=== PATIENT | male | born 1955 | race Caucasian/White ===

== ENCOUNTER → 2020-01-30 | Outpatient (CLI) | payer OTHER | LOC: M.ULTRA 15:30 | DX: R60.0 Localized edema (principal); R06.02 Shortness of breath ==

== ENCOUNTER 2020-03-07 10:41 | Inpatient (IN) | payer OTHER, MEDICARE ==
[2020-03-07] VITALS (13 sets, daily range): BP systolic 120–161; BP diastolic 62–82
[~2020-03-07] VITALS: Ht 167.6 cm; Wt 104.3 kg
[~2020-03-07 10:41] MED LIST: ASA81BEC PO; CRESTOR10 MG PO; DEPO-TESTO100 MG/1 M IM; FLOMAX0.4 MG PO; HUMIRA PEN40 MG/0.4 SUBQ; LOSARTAN POTASS50 MG PO; METFORMIN HCL500 M3 PO; OMEPRAZOLE40 MG PO; TOPROL XL100 MG PO; UNICOMPLEX M TA1 TA1 PO; UNITHROID175 MCG PO; VITAMIN D3 COM1 EACH PO
[2020-03-07 11:45] LABS: HEMATOCRIT 50.6 % (42.0-52.0); HEMOGLOBIN 17.2 gm/dL (14.0-18.0); MCH 28.8 pg (26.0-34.0); MCV 84.7 fL (80.0-100.0); MPV 8.1 fl. (7.2-11.1); RBC 5.97 mil/uL (4.50-6.00); RDW-CV 13.5 % (10.5-14.5); WBC 7.3 thou/uL (4.0-11.0)
[2020-03-07 11:54] LABS: ANION GAP 8 mmol/L (7-16); BUN 18 mg/dL (7-18); CALCIUM 8.7 mg/dL (8.5-10.1); CHLORIDE 103 mmol/L (98-107); CO2 26 mmol/L (21-32); CREATININE 1.1 mg/dL (0.6-1.3); GLUCOSE 121 mg/dL (70-99); POTASSIUM 4.1 mmol/L (3.5-5.1); SODIUM 137 mmol/L (136-145)
[2020-03-07 11:55] LABS: PROTIME 10.4 Seconds (9.20-11.50)
[2020-03-07 11:58] LABS: ALBUMIN 3.6 g/dL (3.4-5.0); ALKALINE PHOSPHATASE 65 U/L (46-116); CHOLESTEROL 166 mg/dL (<200); HDL CHOLESTEROL 29 mg/dL (>40); SERUM ASSESSMENT Clear; SGOT 26 U/L (15-37); SGPT 38 U/L (30-65); TC:HDL 5.7 Ratio (Not establshd); TOTAL BILIRUBIN 0.4 mg/dL (<0.1-1.0); TOTAL PROTEIN 7.2 g/dL (6.4-8.2); TRIGLYCERIDE 432 mg/dL (<150); VLDL 86 mg/dL (<40)
[2020-03-07 11:59] LABS: LDL CHOLESTEROL ND mg/dL (<100)
--- NOTE | 2020-03-07 14:45 | EKG ---
[place] [address] ELECTROCARDIOGRAM REPORT Name: DA BATISTA Room: [facility]#: [id number] Admission: 03/07/20 Attend Phys: Glen Emanuel MD Discharge: Date of : 55 Date of Service: 03/07/20 1111 Report #: [id number] THIS REPORT FOR: //name// [facility] Test Date: 2020-03-07 Test Time: 11:11:11 Pat Name: DA BATISTA Department: Room: Gender: [employer]: : 1955 Requested By: Glen Emanuel Order Number: [id number] Ratna MD: Glen Emanuel Measurements Intervals [place] Rate: 60 P: 32 UT: 147 QRS: -11 QRSD: 89 T: 73 QT: 391 QTc: 391 Interpretive Statements Sinus rhythm Inferior infarct, old Compared to ECG 02/03/2008 08:55 T-wave abnormality no longer present Electronically Signed On 03-07-2020 14:43:30 CDT by Glen Emanuel [email or web address] <ELECTRONICALLY SIGNED> By: Glen Emanuel MD, [facility] 03/07/20 1443 1111 1111 Glen Emanuel MD, FAC /EPI
--- NOTE | 2020-03-07 15:39 | EKG ---
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
--- NOTE | 2020-03-07 16:41 | CARD ---
[address] [address] CARDIAC CATH REPORT Name: DA BATISTA Room: [address] IN [facility].#: [id number] Admission: 03/07/20 Attend Phys: Glen Emanuel MD, F Discharge: Date of : 55 Report #: [id number] THIS REPORT FOR: //name// cc: Katlyn Valdovinos MD, Katrina MD ~ APPROVED REPORT Study performed: 03/07/2020 11:04:47 Patient Details Patient Status: Out-Patient Room #: The patient is a 64 year-old male Event Personnel [employer], Glen Emanuel, Angel Aquino RN, Willie COLUNGA, Ofelia Heller RTR Procedures Performed Art Access- Right Radial Artery, Diagnositic Left heart catheterization, BAILEE placement w/wo angioplasty RCA, Hemostasis Vasc band Indication Abnormal ECG, Dizziness and vertigo, Positive stress test Risk Factors Hypercholesterolemia, Coronary Artery DiseaseHypertension, Diabetes Previous Procedures/Diagnoses Previous PCI Admission/Lab Medications/Medications given during procedure Glycoprotein IllbIlla Inhibitors, Heparin Unfract. Procedure Narrative The patient was brought electively to the Cardiac Catheterization Laboratory and was prepped and draped in a sterile manner. The right wrist was infiltrated with 2% Lidocaine subcutaneous anesthesia. A 6 Fr Slender [place] sheath was inserted into the right radial artery. Coronary angiography was performed using coronary diagnostic catheters. The right coronary system was accessed and visualized with a Diagnostic 6 Fr JR 4 catheter. The left coronary system was accessed and visualized with a Diagnostic 6 Fr JL 4 catheter. The left ventricle was accessed and visualized with a Diagnostic 6 Fr [facility] [address] [place] [address] CARDIAC CATH REPORT Name: DA BATISTA Room: [address] IN [facility]#: [id number] Admission: 03/07/20 Attend Phys: Glen Emanuel MD, F Discharge: Date of : 55 Report #: [id number] Pigtail catheter. Left ventricular/Aortic Valve gradient assessed via catheter pullback. Left ventriculogram was performed in BROWN projection. Closure device was deployed with a 6 Fr vascband. The patient tolerated the procedure well and there were no complications associated with the procedure. There was no hematoma. Intraoperative Conscious Sedation Sedation start time: 12:21 Case end Time: 13:26 Fentanyl 50.0 mcg Versed 2.0 mg Fluoro Time: 15.1 minutes Dose: DAP 026703 cGycm2 2820 mGy Contrast Type and Amount: Omnipaque 140 ml Coronary Angiography The patient's coronary anatomy is right dominant. Diagnostic Cath Left Main 30% distal stenosis LAD proximal stent with 40% tubular stenosis Diagonal 2 medium sized vessel with 70% ostial stenosis Circumflex stent in mid circumflex after first marginal branch appearred chronically occluded and filled retrograde from collaterals from the lad. Right Coronary stent in proximal rca had 90% stenosis and appearred occluded at the distal end of the stent and had slow antegrade flow as well as retrograd flow from collaterals from the left coronary artery. Ramus large vessel with proximal 70% stenosis Left Ventriculography The left ventricular ejection fraction is estimated to be 35-40%. Left ventricular wall motion abnormalities are present. There is no mitral insufficiency. mild inferior wall hypokinesis noted Hemodynamics The aortic pressure is 161/72 mmHg with a mean of 107 mmHg. The left ventricular pressure is 140/0 mmHg with a mean of mmHg. The left ventricular end diastolic pressure is 12 mmHg. There was no gradient across the aortic valve upon pullback. Pullback from the left ventricle to the aorta revealed no [place] [address] CARDIAC CATH REPORT Name: DA BATISTA J Room: [address] IN [facility]#: [id number] Admission: 03/07/20 Attend Phys: Glen Emanuel MD, F Discharge: Date of : 55 Report #: [id number] PCI Technique Lesion Anticoagulation was achieved with Heparin. Patient was preloaded with 10.9 ml Aggrastat. Percutaneous coronary intervention was performed on the proximal right coronary artery. The lesion stenosis prior to intervention was 100% with JASON 2 flow. A jcr4 Guide Catheter was used to engage the rca ostium. A bmw Interventional Guidewire was used to cross the lesion. BALLOON DILATION A Balloon catheter 2.5 x 12 mm was inserted and inflated up to 6atm for 10seconds. Repeat angiography revealed the following post-dilatation results: 50% stenosis. Additional Inflation: 8atm for 11seconds. Additional Inflation: 10atm for 10seconds. STENT DEPLOYMENT A drug-eluting stent 2.5 x 38 mm was inserted and inflated up to 8atm for 12seconds. Repeat angiography revealed the following post-stent deployment results: 0% stenosis. Additional Inflation: 9atm for 9seconds. Additional Inflation: 14atm for 17seconds. Final angiography reveals 0 % stenosis with JASON 3 flow. PCI Technique Lesion 2 Percutaneous Coronary Intervention was performed on the mid circumflex artery segment. Percutaneous coronary intervention was performed on the mid circumflex artery segment. The lesion stenosis prior to intervention was 100% with JASON 0 flow. A xb3.0 Guide Catheter was used to engage the lm ostium. A bmw Interventional Guidewire was used to cross the lesion. Balloon Dilation Unable to cross occlusion with neither the BMW, nor Choice PT extrasupport wire, nor the [place] wire. It was felt that the occlusion reprented a chronic occlusion and additional attempts were abandoned. Final angiography reveals 100 % stenosis with JASON 0 flow. Conclusion 1. Stent in the proximal lad that had a 40% stenosis. A 70% proximal stenosis was noted in a large ramus artery. 2. Stent in the mid circumflex artery appearred chronically occluded and filled by retrograde collaterals from the lad 3. Stent in the proximal rca appearred occluded and filled by slow antegrad flow as well as retrograde [place] [address] CARDIAC CATH REPORT Name: DA BATISTA Room: [address] IN [facility]#: [id number] Admission: 03/07/20 Attend Phys: Glen Emanuel MD, F Discharge: Date of : 55 Report #: [id number] left coronary artery. 4. LVEF 35-40% 5. successful placement of a drug eluting stent in the proximal rca 6. unable to advance 3 seperate guide wires through the occlusion in the mid circumflex artery Recommendations Cardiac Rehabilitation Referral Aggressive Medical Therapy Medications Administered Clopidogrel <ELECTRONICALLY SIGNED> By: Glen Emanuel MD, FACC 03/07/20 1639 38 38Glen Emanuel MD, FACC /INF
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
--- NOTE | 2020-03-07 19:22 | NUR ---
PT. ADMITTED TO UNIT BY BED SP CARDIAC CATH. VSS, SB ON HEALTH MONITOR, R RADIAL CATH INSERTION SITE CDI. NO SWELLING OR REDNESS NOTED. ADMISSION PAPERWORK COMPLETED. PT. IN PLEASANT AFFECT, ON ROOM AIR, VITALS SIGNS ASSESSED PER PROTOCOL. HOURLY ROUNDING PERFORMED. POSESSIONS AND CALL LIGHT WITHIN REACH. ORIENTED PATIENT TO ROOM.
[2020-03-08 00:37] VITALS: BP 149/59
[2020-03-08 01:10] LABS: HEMATOCRIT 48.1 % (42.0-52.0); MCH 28.5 pg (26.0-34.0); MCHC 33.2 g/dL (28.0-37.0); MCV 85.6 fL (80.0-100.0); MPV 8.1 fl. (7.2-11.1); RBC 5.61 mil/uL (4.50-6.00); RDW-CV 13.7 % (10.5-14.5); WBC 5.8 thou/uL (4.0-11.0)
[2020-03-08 01:34] LABS: CREATININE 1.3 mg/dL (0.6-1.3); POTASSIUM 4.1 mmol/L (3.5-5.1); TROPONIN-I LEVEL 0.17 ng/mL (<0.06)
[2020-03-08 04:00] VITALS: BP 141/70
--- NOTE | 2020-03-08 05:18 | NUR ---
PT CARE ASSUMED AT 1930. SAT MAINTAINED IN RA. ALERT AND ORIENTED X4. DENIES PAIN AND SOB. CALL LIGHT WITHIN REACH AND BED IN LOW POSITION. CATH SITE C/D/I. HOURLY ROUNDING DONE FOR PT SAFETY.
[2020-03-08 08:00] VITALS: BP 160/82
[2020-03-08 09:03] VITALS: BP 160/82
[2020-03-08] MEDS ORDERED: NITROSTAT0.4 M1 SUBLING (09:22)
[2020-03-08] MEDS ORDERED: ZETIA10 MG PO (09:24)
[2020-03-08] MEDS ORDERED: PLAVIX 75 MG TA75 MG PO (09:26)
[2020-03-08 10:54] VITALS: BP 160/82
--- NOTE | 2020-03-08 13:28 | EKG ---
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1955 Requested By: Glen Emanuel Order Number: [id number] Ratna MD: Glen Emanuel Measurements Intervals [place] Rate: 59 P: 36 MI: 154 QRS: -3 QRSD: 91 T: QT: 392 QTc: 389 Interpretive Statements Sinus rhythm nonspecific t wave changes Inferior infarct, old Baseline wander in lead(s) V6 Compared to ECG 03/07/2020 14:28:31 No significant changes Electronically Signed On 03-08-2020 13:27:05 CDT by Glen Emanuel [email or web address] <ELECTRONICALLY SIGNED> By: Glen Emanuel MD, FAC 03/08/20 1327 0357 0357 lGen Emanuel MD, [facility] /EPI
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
--- NOTE | 2020-03-08 19:43 | NUR ---
PT VSS, A&OX4, NSR ON TELE, ROOM AIR, POST CATH. DAY 1, RIGHT WRIST CLEAN, NO DRAINAGE-NO HEMATOMA, UP AD JAMIE, HOURLY ROUNDING PERFORMED, POSSESSIONS AND CALL LIGHT WITHIN REACH. REC DISCHARGE ORDERS, REV WITH PATIENT AND ANSWERED QUESTIONS. TELE MONITOR AND IV REMOVED WITHOUT COMPLICATION. SCRIPTS AND CARE NOTES GIVEN. PT TAKEN IN WHEELCHAIR BY NURSING STAFF TO FRONT DOOR, PICKED UP BY SPOUSE IN FAMILY CAR.
== END 2020-03-08 12:45 | disposition home or self-care (01) | DRG 247 ==
LOC: M.CL 10:41 → M.TBA-CV 16:30 → M.2W 16:30
PROVIDERS: ADMIT Internal Medicine Cardiovascular Disease
PROC: B2111ZZ Fluoroscopy of Multiple Coronary Arteries using Low Osmolar Contrast (ICD-10-PCS; principal; 2020-03-07)
PROC: 027034Z Dilation of Coronary Artery, One Artery with Drug-eluting Intraluminal Device, Percutaneous Approach (ICD-10-PCS; principal; 2020-03-07)
PROC: 4A023N7 Measurement of Cardiac Sampling and Pressure, Left Heart, Percutaneous Approach (ICD-10-PCS; principal; 2020-03-07)
PROC: B2151ZZ Fluoroscopy of Left Heart using Low Osmolar Contrast (ICD-10-PCS; principal; 2020-03-07)
DX: I25.10 Atherosclerotic heart disease of native coronary artery without angina pectoris (principal); I10 Essential (primary) hypertension; E66.9 Obesity, unspecified; E78.5 Hyperlipidemia, unspecified; Z88.0 Allergy status to penicillin; Z88.8 Allergy status to other drugs, medicaments and biological substances; Z68.37 Body mass index [BMI] 37.0-37.9, adult